=== PATIENT | female | born 2005 | race Caucasian/White ===

== ENCOUNTER 2025-04-20 13:43 | Emergency (ER) | payer OTHER ==
[~2025-04-20] VITALS: Ht 167.6 cm; Wt 98.5 kg
[2025-04-20 13:50] VITALS: TEMP 97.1
[2025-04-20] MEDS ORDERED: ONDA-83 PO (17:37)
[2025-04-20] MEDS ORDERED: HOME MED LIST COMPLETE! XX SCH (17:40)
[2025-04-20 19:10] LABS: BASO # 0.0 10^3/uL (0.0-0.2); BASO % 0.3 % (0.0-1.0); EOS # 0.0 10^3/uL (0.0-0.5); EOS % 0.7 % (0.0-3.0); LYMPH # 1.8 10^3/uL (1.5-5.0); LYMPH % 30.3 % (24.0-44.0); MONO # 0.4 10^3/uL (0.0-0.8); MONO % 7.0 % (2.0-8.0); NEUTROPHILS # 3.7 10^3/uL (1.5-8.5); NEUTROPHILS % 61.5 % (36.0-66.0); PLATELET COUNT, AUTOMATED 240 10^3/uL (150-450)
[2025-04-20 19:38] LABS: CALCIUM LEVEL 9.1 MG/DL (8.5-10.1); CARBON DIOXIDE LEVEL 26 MMOL/L (20-31); CHLORIDE LEVEL 105 MMOL/L (98-107); CK-MB VALUE MASS < 1.0 NG/ML (<3.6); CREATININE FOR GFR 0.75 MG/DL (0.55-1.30); GLOMERULAR FILTRATION RATE > 90.0 (>60); MAGNESIUM LEVEL 2.0 MG/DL (1.8-2.4); POTASSIUM SERUM 4.3 MMOL/L (3.5-5.1); SODIUM LEVEL 142 MMOL/L (136-145)
[2025-04-20 19:40] LABS: FREE T4 1.20 NG/DL (0.89-1.76)
[2025-04-20 19:41] LABS: CPK CREATINE PHOSPHOKINASE 83 U/L (34-145)
[2025-04-20 20:00] VITALS: BP 119/69
[2025-04-20 20:01] VITALS: O2SAT 99
== END 2025-04-20 20:40 | disposition home or self-care (01) ==
LOC: M ED 13:43
DX: M94.0 Chondrocostal junction syndrome [Tietze] (principal); Z79.899 Other long term (current) drug therapy